=== PATIENT | female | born 1955 | race Caucasian/White ===

== ENCOUNTER 2017-09-21 08:40 | Inpatient (IN) | payer BC ==
[2017-08-26 11:54] VITALS: Ht 172.7 cm; Wt 57.7 kg
--- NOTE | 2017-08-26 12:38 | PAT Medication Instructions ---
Service Date Aug 26, 2017. Current Home Medication List Bupropion (Wellbutrin), 75 MG PO QAM Citalopram Hydrobromide (Celexa), 20 MG PO BID Cyclobenzaprine Hcl (Flexeril), 10 MG PO TID Hydrocodon/Acetaminophen 7.5MG/300MG (Vicodin Es (7.5MG/300MG)), 1 TAB PO Q6 PRN for Pain Lidocaine (Lidocaine), 1 DOSE TOP Q12 Lorazepam (Ativan), 0.5 MG PO TID Losartan Potassium (Cozaar), 50 MG PO QAM Naproxen (Naprosyn), 500 MG PO BID Naproxen (Naprosyn), 0.5 TAB PO 3 AM Temazepam (Restoril), 15 MG PO 11 AM Medication Instructions For Your Scheduled Surgery -Continue as directed: Temazepam (Restoril), 15 MG PO 11 AM - Hold the following medications 1 week prior to surgery: Naproxen (Naprosyn), 500 MG PO BID Naproxen (Naprosyn), 0.5 TAB PO 3 AM - Hold the following medications 24 hours prior to surgery: Lidocaine (Lidocaine), 1 DOSE TOP Q12 - Hold the following medications the morning of surgery: Cyclobenzaprine Hcl (Flexeril), 10 MG PO TID Losartan Potassium (Cozaar), 50 MG PO QAM - Take the following medications the morning of surgery with a sip of water: Hydrocodon/Acetaminophen 7.5MG/300MG (Vicodin Es (7.5MG/300MG)), 1 TAB PO Q6 PRN for Pain (if needed, up to four hours before surgery) Bupropion (Wellbutrin), 75 MG PO QAM Lorazepam (Ativan), 0.5 MG PO TID Citalopram Hydrobromide (Celexa), 20 MG PO BID - Take the following medications as scheduled the night before surgery: Hydrocodon/Acetaminophen 7.5MG/300MG (Vicodin Es (7.5MG/300MG)), 1 TAB PO Q6 PRN for Pain Lorazepam (Ativan), 0.5 MG PO TID Cyclobenzaprine Hcl (Flexeril), 10 MG PO TID Citalopram Hydrobromide (Celexa), 20 MG PO BID If you have any questions please call us at [phone] or [phone] or [phone]
--- NOTE | 2017-08-26 13:16 | DIAGNOSTIC IMAGING REPORT ---
CHEST 2 VIEWS ROUTINE CLINICAL HISTORY: Preoperative chest COMPARISON STUDY: No previous studies for comparison. FINDINGS: The cardiac and mediastinal contours are normal. There is no evidence of focal pulmonary consolidation. There is no evidence of failure. No pleural effusions are visualized.[ IMPRESSION: No active disease in the chest. Electronically signed by: Sincere Cueto M.D. 08/26/2017 1:15 PM Dictated Date/Time: 08/26/2017 1:14 PM
[2017-08-26 13:40] LABS: BASO % 0.4 %; BASO ABS # 0.05 K/uL (0-0.2); EOS % 1.3 %; EOS ABS # 0.16 K/uL (0-0.5); HEMATOCRIT 39.9 % (37-47); HEMOGLOBIN 13.3 g/dL (12.0-16.0); IG# 0.02 K/uL (0.00-0.02); LYMPH % 36.3 %; LYMPH ABS # 4.32 K/uL (1.2-3.4); MEAN CELL VOLUME 93.2 fL (80-100); MEAN CORPUSCULAR HEMOGLOBIN 31.1 pg (25-34); MEAN CORPUSCULAR HGB CONC 33.3 g/dl (32-36); MEAN PLATELET VOLUME 9.1 fL (7.4-10.4); MONO % 7.7 %; MONO ABS # 0.92 K/uL (0.11-0.59); NEUT % 54.1 %; NEUT ABS # 6.43 K/uL (1.4-6.5); PLATELET COUNT 321 K/uL (130-400); RED CELL DISTRIBUTION WIDTH CV 13.2 % (11.5-14.5); RED CELL DISTRIBUTION WIDTH SD 44.8 fL (36.4-46.3)
[2017-08-26 13:41] LABS: CALCIUM 9.4 mg/dl (8.5-10.1); CREATININE 0.9 mg/dl (0.60-1.20); POTASSIUM 3.7 mmol/L (3.5-5.1)
[2017-09-21] VITALS (7 sets, daily range): BP systolic 101–131; BP diastolic 57–73; PULSE 99–105; TEMP 36.4–37.1; O2SAT 92–100
[~2017-09-21] VITALS: Ht 172.7 cm; Wt 57.7 kg
[~2017-09-21 08:40] MED LIST: BUPR75TA20 PO; CEFAZOLIN 1000MG IV PUSH 5 ML IV SCH; CITA20TA9 PO; CYCL10TA6 PO; HYDR-3714 PO; LACTATED RINGER'S 1000ML 1,000 ML IV SCH; LDDP5 TOP; LORA-741 PO; LOSA50TA6 PO; NAPR-1169 PO; TEMA15CA4 PO
[2017-09-21] MEDS ORDERED: FENTANYL CITRATE INJ 50 MCG/1 ML 2 ML VIAL ONE ×6 (10:01→13:35)
[2017-09-21] MEDS ORDERED: MIDAZOLAM HCL 1 MG/ML 2ML VIAL ONE ×2 (10:01→14:07)
--- NOTE | 2017-09-21 10:18 | History & Physical Bridge Note ---
H&P Re-Evaluation Bridge Note: I have examined the patient, reviewed the History & Physical and in the interval since the performance of the History & Physical I have noted the following changes of clinical significance: No changes noted
--- NOTE | 2017-09-21 10:19 | History and Physical ---
History & Physical Date Sep 21, 2017. Chief Complaint Back and leg pain History of Present Illness The patient is a 62 year old female with complaints of back and leg pain Additional History Hepatic Disease: No Endocrine Disorder: No Kidney Disease: No Hypertension: Yes Heart Disease: No Bleeding Tendencies: No Infectious Diseases: No Allergies Coded Allergies: Sulfa Antibiotics (Verified Allergy, Severe, THROAT SWELLING, 09/21/17) Home Medications Scheduled Bupropion (Wellbutrin), 75 MG PO QAM Citalopram Hydrobromide (Celexa), 20 MG PO BID Cyclobenzaprine Hcl (Flexeril), 10 MG PO TID Lidocaine (Lidocaine), 1 DOSE TOP Q12 Lorazepam (Ativan), 0.5 MG PO TID Losartan Potassium (Cozaar), 50 MG PO QAM Naproxen (Naprosyn), 500 MG PO BID Naproxen (Naprosyn), 0.5 TAB PO 3 AM Temazepam (Restoril), 15 MG PO 11 AM Scheduled PRN Hydrocodon/Acetaminophen 7.5MG/300MG (Vicodin Es (7.5MG/300MG)), 1 TAB PO Q6 PRN for Pain Physical Examination Skin: warm/dry, no rash Eyes: normal inspection, EOMI, sclerae normal ENT: normal ENT inspection, pharynx normal Head: normocephalic, atraumatic Neck: supple, no adenopathy, trachea midline Respiratory/Chest: lungs clear, normal breath sounds, no respiratory distress Cardiovascular: regular rate, rhythm, no edema, no murmur Abdomen / GI: normal bowel sounds, non tender Back: normal inspection Extremities: normal inspection, normal range of motion Neurologic/Psych: no motor/sensory deficits, alert, normal reflexes, oriented x 3 Diagnosis Lumbar spinal stenosis Plan of Treatment L2 to L5 decompression fusion with possible L2 to S1 fusion
[2017-09-21] MEDS ORDERED: BACITRACIN 50000 UNIT VIAL ONE (10:35)
[2017-09-21] MEDS ORDERED: BUPIVACAINE 0.5 % 5 MG/1 ML MPF 30ML VIAL ONE (10:36)
[2017-09-21] MEDS ORDERED: EpINEphrine INJ 1MG/ML AMP 1 MG/ML AMP ONE (10:36)
[2017-09-21] MEDS ORDERED: HYDROmorphone INJ 2 MG/ML SYR/VIAL ONE ×3 (11:26→13:02)
[2017-09-21] MEDS ORDERED: MoRPHine SULFATE 10 MG/ML CARP/VIAL IV PRN (12:15)
[2017-09-21] MEDS ORDERED: ONDANSETRON INJ 2 MG/ML 2 ML VIAL IV PRN ×2 (12:15→13:15)
[2017-09-21] MEDS ORDERED: ATROPINE SULFATE 0.1 MG/ML 5ML SYR IV PRN (12:15)
[2017-09-21] MEDS ORDERED: FENTANYL CITRATE INJ 50 MCG/1 ML 2 ML VIAL IV PRN (12:15)
[2017-09-21] MEDS ORDERED: EpHEDrine SULFATE INJ 50 MG/ML AMP IV PRN (12:15)
[2017-09-21] MEDS ORDERED: ONDANSETRON INJ 2 MG/ML 2 ML VIAL ONE (12:29)
[2017-09-21] MEDS ORDERED: DEXAMETHASONE SOD INJ 4 MG/ML VIAL ONE (12:29)
[2017-09-21] MEDS ORDERED: LIDOCAINE HCL 2% 2 ML VIAL (20MG/ML) ONE (12:29)
[2017-09-21] MEDS ORDERED: PROPOFOL IV EMULSION 10 MG/ML 20 ML VIAL IV ONE (12:29)
[2017-09-21] MEDS ORDERED: ROCURONIUM BROMIDE 10 MG/ML 5 ML VIAL IV ONE (12:29)
[2017-09-21] MEDS ORDERED: FLOSEAL HEMOSTATIC MATRIX 10ML TOP ONE (12:42)
[2017-09-21] MEDS ORDERED: SODIUM CHLORIDE 0.9% 1000ML 1,000 ML IV SCH (13:04)
[2017-09-21] MEDS ORDERED: PHENYLEPHRINE 100MCG/ML 5ML SYR ONE (13:09)
[2017-09-21] MEDS ORDERED: GLYCOPYRROLATE INJ 0.2 MG/ML VIAL ONE (13:09)
[2017-09-21] MEDS ORDERED: NEOSTIGMINE METHYLSULFATE 1 MG/ML 10ML VIAL ONE (13:09)
[2017-09-21] MEDS ORDERED: EpHEDrine SULFATE 50MG/5ML SYR ONE (13:09)
--- NOTE | 2017-09-21 13:14 | [facility] Operative Report ---
Operative Report Operative Date Sep 21, 2017. Pre-Operative Diagnosis Lumbar Spinal Stenosis Post-Operative Diagnosis same as preop Procedure(s) Performed Her 1 lumbar decompression medial facetectomy foraminotomies L2 3 L3 4 L4 5. #2 posterior spinal fusion L2 3 L3 4 L4 5. #3 placement posterior segmental instrumentation L2 3 L3 4 L4 5. #4 placement locally harvested morcellized autograft posterior gutters. #5 placement infuse collagen sponge by mask graft in the posterior lateral gutters L2 to L5. Surgeon Dr. Augustine Banerjee Trouble Lineman Surgeon(s) N/A Estimated Blood Loss 175mL Findings Severe spinal stenosis Specimens none, per surgeon Description of Procedure Patient was met with preoperatively case discussed all questions addressed. After informed consent obtained patient was taken to the operative suite underwent intubation placed in a prone position the Iker table top Thony frame. All bony prominences well-padded eyes inspected to ensure no external pressure placed upon them. This point the lumbar spines prepped and draped nostril fashion. Sharp dissection with the assistance of Bovie cautery was performed onto an exposing the lamina and transverse processes of L2-L3 L4-L5 bilaterally. From a caudal to cephalad fashion complete laminectomy including a facetectomy foraminotomy of L4 L3 and L2 was performed addressing severe spinal stenosis. After this complete pedicle screws are placed in L2-L3 L4-L5 bilaterally with assistance of fluoroscopy in the purposes ralph locked in position. Cross-link was locked in position. Transverse processes of L2-L3 L4- L5 burred to subcortical bleeding bone. Infuse collagen sponge mask graft locally harvested morcellized autograft placed in the posterior gutters. 15 round JERSON drain inserted. Incision then closed with 1 Vicryl fascia 2-0 Vicryl subcutaneous tediously 4 Monocryl for final skin closure Steri-Strip sterile dressing was placed. Patient we can taken to PACU stable condition. I attest to the content of the Intraoperative Record and any orders documented therein. Any exceptions are noted below.
[2017-09-21] MEDS ORDERED: ALUMINUM/MAGNESIUM SUSP 30 ML UDC PO PRN (13:15)
[2017-09-21] MEDS ORDERED: hydrOXYzine HCL 25 MG TAB PO PRN (13:15)
[2017-09-21] MEDS ORDERED: DO NOT ADMINISTER FLU VACCINE PRN (13:15)
[2017-09-21] MEDS ORDERED: METOCLOPRAMIDE HCL INJ 5 MG/ML 2 ML VIAL IV PRN (13:15)
[2017-09-21] MEDS ORDERED: BISACODYL 10 MG SUPP PR PRN (13:15)
[2017-09-21] MEDS ORDERED: LORAZEPAM 0.5 MG TAB PO PRN (13:15)
[2017-09-21] MEDS ORDERED: NALOXONE HCL 0.4 MG/1 ML VIAL/CARP IV PRN ×2 (13:15)
[2017-09-21] MEDS ORDERED: PROMETHAZINE HCL INJ 12.5 MG in SODIUM CHLORIDE 0.9% 50ML 50 ML IV PRN (13:15)
[2017-09-21] MEDS ORDERED: ACETAMINOPHEN IV 100 ML IV PRN (13:15)
[2017-09-21] MEDS ORDERED: HYDROmorphone HCL 0.5MG/ML 50 ML CASSETTE IV PRN (13:15)
[2017-09-21] MEDS ORDERED: DO NOT ADMINISTER PNEUMOCOCCAL VACCINE PRN (13:15)
[2017-09-21] MEDS ORDERED: SOD PHOSPHATE/SOD BIPHOSPHATE ENEMA 132 ML BTL PR PRN (13:15)
[2017-09-21] MEDS ORDERED: MAGNESIUM HYDROXIDE SUSP 30 ML UDC PO PRN (13:15)
[2017-09-21] MEDS ORDERED: FAMOTIDINE 20 MG TAB PO PRN (13:15)
[2017-09-21] MEDS ORDERED: LORAZEPAM INJ 0.5 MG in SYRINGE 0 ML IV PRN (13:15)
--- NOTE | 2017-09-21 13:30 | DIAGNOSTIC IMAGING REPORT ---
LUMBAR SPINE 2 OR 3 VIEW CLINICAL HISTORY: 62 years-old Female presenting with L2-L5 DECOMP/FUSION POSS L2-S1. TECHNIQUE: 3 fluoroscopic spot image(s) obtained as part of an intraoperative procedure. COMPARISON: None. FINDINGS/IMPRESSION: Bilateral transpedicular screw and ralph fixation of L2-L5. Bunionectomy defects also noted at several of these levels. Grossly normal anatomic alignment. Please see surgical report for further details. Fluoroscopy dosage (mGy): 9.4. Fluoroscopy time: 20.6 seconds. Number of fluoroscopic spot images: 3. Electronically signed by: Mack Miranda M.D. 09/21/2017 1:29 PM Dictated Date/Time: 09/21/2017 1:28 PM
[2017-09-21] MEDS ORDERED: MoRPHine SULFATE 10 MG/ML CARP/VIAL ONE (13:43)
[2017-09-21] MEDS ORDERED: HYDROmorphone HCL 0.5MG/ML 50 ML CASSETTE ONE (13:47)
[2017-09-21] MEDS ORDERED: LORAZEPAM 0.5 MG TAB PO SCH (14:00)
[2017-09-21] MEDS ORDERED: NURSING VERBAL MED ORDER ONE ×2 (14:15→14:45)
--- NOTE | 2017-09-21 14:29 | Anesthesiology Progress Note ---
Anesthesia Post Op Note Date & Time Sep 21, 2017 at 14:29 Vital Signs Pain Intensity: 8 Vital Signs Past 12 Hours Date Time Temp Pulse Resp B/P (MAP) Pulse Ox O2 Delivery O2 Flow Rate FiO2 09/21/17 14:20 36.6 103 16 105/58 99 Nasal Cannula 3 09/21/17 14:10 111 16 121/63 99 Nasal Cannula 3 09/21/17 14:00 106 16 131/71 98 Nasal Cannula 3 09/21/17 13:50 105 16 134/69 98 Nasal Cannula 3 09/21/17 13:40 103 14 133/57 100 Nasal Cannula 3 09/21/17 13:30 101 14 131/64 100 Oxymask 3 09/21/17 13:20 97 14 125/65 100 Oxymask 5 09/21/17 13:12 36.5 91 14 111/69 100 Oxymask 5 09/21/17 09:31 37.1 105 18 131/71 96 Room Air Notes Mental Status: alert / awake / arousable, participated in evaluation Pt Amnestic to Procedure: Yes Nausea / Vomiting: adequately controlled Pain: adequately controlled Airway Patency, RR, SpO2: stable & adequate BP & HR: stable & adequate Hydration State: stable & adequate Anesthetic Complications: no major complications apparent
[2017-09-21] MEDS ORDERED: MIDAZOLAM HCL 1 MG/ML 2ML VIAL IV ONE (15:15)
[2017-09-21] MEDS: LIDODERM (LIDOCAINE) PATCH 5% TD SCH (16:51)
[2017-09-21] MEDS: CEFAZOLIN IV 1,000 MG in SYRINGE 0 ML IV SCH (17:43)
[2017-09-21] MEDS: DEXAMETHASONE INJ 6 MG in SYRINGE 0 ML IV SCH (20:30)
[2017-09-21] MEDS: LACTATED RINGER'S 1000ML 1,000 ML IV SCH ×2 (20:30→21:24)
[2017-09-21] MEDS: DOCUSATE SODIUM/SENNA 50/8.6MG TAB PO SCH (20:31)
[2017-09-21] MEDS: CITALOPRAM 20 MG TAB PO SCH (20:31)
[2017-09-21] MEDS ORDERED: TEMAZEPAM 15 MG CAP PO SCH (21:00)
[2017-09-22] MEDS: CEFAZOLIN IV 1,000 MG in SYRINGE 0 ML IV SCH (02:12)
[2017-09-22 03:11] VITALS: BP 120/69; PULSE 113; TEMP 36.8; O2SAT 92
[2017-09-22] MEDS: LACTATED RINGER'S 1000ML 1,000 ML IV SCH (03:28)
[2017-09-22] MEDS: DEXAMETHASONE INJ 6 MG in SYRINGE 0 ML IV SCH ×2 (04:19→12:09)
[2017-09-22] MEDS ORDERED: DC PCA ONE (06:00)
[2017-09-22] MEDS ORDERED: NURSING DECISION MEDICATION ORDER SCH (06:30)
[2017-09-22 06:32] LABS: BASO % 0.1 %; BASO ABS # 0.01 K/uL (0-0.2); HEMATOCRIT 31.3 % (37-47); IG# 0.05 K/uL (0.00-0.02); LYMPH % 6.8 %; LYMPH ABS # 1.06 K/uL (1.2-3.4); MEAN CELL VOLUME 94.6 fL (80-100); MEAN CORPUSCULAR HEMOGLOBIN 30.2 pg (25-34); MEAN CORPUSCULAR HGB CONC 31.9 g/dl (32-36); MEAN PLATELET VOLUME 9.1 fL (7.4-10.4); MONO % 5.1 %; NEUT % 87.7 %; NEUT ABS # 13.66 K/uL (1.4-6.5); PLATELET COUNT 271 K/uL (130-400); RED CELL DISTRIBUTION WIDTH CV 12.6 % (11.5-14.5); RED CELL DISTRIBUTION WIDTH SD 43.5 fL (36.4-46.3); WHITE BLOOD COUNT 15.58 K/uL (4.8-10.8)
[2017-09-22] MEDS: OXYCODONE HCL IR 5 MG TAB (IMMEDIATE RELEASE) PO PRN ×4 (07:02→21:12)
[2017-09-22 07:05] LABS: CALCIUM 8.5 mg/dl (8.5-10.1); CREATININE 0.78 mg/dl (0.60-1.20); POTASSIUM 4.5 mmol/L (3.5-5.1)
[2017-09-22 07:50] VITALS: BP 120/68; PULSE 89; TEMP 36.6; O2SAT 92
[2017-09-22 08:02] VITALS: O2SAT 92
--- NOTE | 2017-09-22 08:02 | Clinical Documentation Query ---
SIMON Garcia : CLINICAL DOCUMENTATION QUERIES QUERY 1 OF 2 Patient is a 62 year old female who underwent posterior lumbar decompression and fusion . Preoperative H&H was 13.3 g/dl and 39.9%. POD #1, repeat values are 10.0 g/dl and 31.3%. EBL for the procedure was 175 ml's with subsequently documented losses of an additional 240 ml's to date. Additionally, net I/O is positive for > 1 liter at this time. She is being monitored with serial hematology and I/O including drain outputs. Please clarify and document as clinically appropriate. Thank you. In your clinical opinion is this patient being managed for: ( ) Acute blood loss anemia ( ) Not Agree ( ) Other explanation of clinical findings (Please Explain) ( ) Unable to determine (Please Define) ( ) Need to Discuss The medical record reflects the following clinical findings, treatment, and risk factors. Clinical Indicators: As above Treatment:She is being monitored with serial hematology and I/O including drain outputs Risk Factors: IVF administration, acute perioperative blood losses QUERY 2 OF 2 BMI noted to be 19.3 kg/m*m. In order to capture this clinically relevant data from the medical record, the provider must explicitly document an associated condition. As appropriate, consider documentation as suggested below. Thank you. In your clinical opinion is this patient: ( ) Underweight, Body mass index (BMI) 19.3 ( ) Not Agree ( ) Other explanation of clinical findings (Please Explain) ( ) Unable to determine (Please Define) ( ) Need to Discuss The medical record reflects the following clinical findings, treatment, and risk factors. Please clarify and document your clinical opinion in the progress notes and discharge summary. Terms such as "probable", "suspected", "likely", "questionable", "possible", or "still to be ruled out" are acceptable. IF IN AGREEMENT, YOU MUST DOCUMENT ABOVE DIAGNOSTIC STATEMENT IN DAILY PROGRESS NOTES AND DISCHARGE SUMMARY. This document is not part of the patient's record. Thank You, Jaron Monroe, JUANJOSE [phone]
[2017-09-22] MEDS: CITALOPRAM 20 MG TAB PO SCH ×2 (08:56→21:11)
[2017-09-22] MEDS: LOSARTAN POTASSIUM 50 MG TAB PO SCH (08:57)
[2017-09-22] MEDS: LIDODERM (LIDOCAINE) PATCH 5% TD SCH (08:58)
[2017-09-22 12:37] VITALS: BP 116/70; PULSE 97; TEMP 36.9; O2SAT 95
[2017-09-22] MEDS ORDERED: NURSING VERBAL MED ORDER ONE (14:00)
[2017-09-22] MEDS: HYDROmorphone INJ 0.5 MG/0.5 ML SYR IV PRN ×2 (14:05→19:11)
--- NOTE | 2017-09-22 14:15 | Progress Note ---
Progress Note Date of Service Sep 22, 2017. Progress Note Patient is postop day #1. Back pain is controlled. Leg symptoms improved. Vital signs are stable. JERSON drain decreasing appropriate. On exam she is good strength testing appears comfortable. Assessment status post lumbar depression fusion replant this time we'll initiate physical therapy advance her bowel regimen anticipate home Wednesday.
[2017-09-22] MEDS: NICOTINE 21 MG/24 HR TDSY EXT SCH (14:19)
[2017-09-22] MEDS ORDERED: RXC5 PO (14:20)
--- NOTE | 2017-09-22 14:21 | Discharge Instructions ---
Discharge Instructions Date of Service Sep 22, 2017. Admission Reason for Admission: Lumbar Spinal Stenosis Discharge Discharge Diagnosis / Problem: lumbar stenosis Discharge Goals Goal(s): Improve function Activity Recommendations Activity Limitations: per Instructions/Follow-up section . Instructions / Follow-Up Instructions / Follow-Up ACTIVITY RECOMMENDATIONS: SELF CARE INSTRUCTIONS AFTER THORACIC/LUMBAR FUSIONS 1. You may walk to your tolerance. It is good exercise for your legs and back. Expect some back and intermittent leg aches and pains. 2. You may perform "counter-top" level activities (make a sandwich, felicia with a project, etc.). 3. No bending or lifting of more than 10 pounds or back twisting of any nature (roll like a log when turning in bed). 4. You may ride in a car for 20-30 minutes at a time. No driving until after your first visit with your doctor. 5. Frequent changes of position and restricting sitting to 30 minutes at a time will help limit the amount of back spasms and stiffness you may experience. 6. You may discontinue the use of ambulatory aids (cane, crutches, etc.) once your strength and confidence allow. 7. You may cane flume feeding machine operator the shower and let water strike your incision when you arrive home at least once daily. Do not take a tub bath, sit in a hot tub or go into a swimming pool until after your first recheck in the office. SPECIAL CARE INSTRUCTIONS: VERY IMPORTANT TO READ AND REVIEW A. Your surgical incision has been closed with a cosmetic suture under the skin that will dissolve in about 6 weeks. In 14 days, you can use a pair of clean scissors and cut the suture that is left outside of the skin at the ends of your incision. 1. The small skin tapes can be removed 7 days after surgery if they have not fallen off by that point. 2. You may keep the wound open to air as much as possible to promote healing after post-op day number 5 unless told otherwise by your doctor. 3. If you think the wound looks like it is becoming infected (redness or worsening drainage) and/or you are experiencing fever, chill or worsening back pain and muscle spasms, contact the office so that we may evaluate you as soon as possible. B. Complications are uncommon, but please contact us if you have any signs or symptoms of: 1. wound infection (fever higher than 102.5 degrees F, redness, separation of wound, drainage, or increasing pain from the incision) 2. blood clots in legs (pain, swelling, redness and warmth in legs) 3. urinary tract infection (fever higher than 102.5 degrees F, burning upon urination or increased frequency of urination) 4. nerve problems (inability to walk on your toes or heels, numbness, loss of bowel or bladder control) 5. any other symptoms that concern you C. Please call the office at if you have any concerns or questions about your operation or recovery. D. No smoking! Smoking drastically decreases the chance of a solid fusion. E. Do not take any anti-inflammatory medications (Indocin, Advil, Motrin, Aspirin, Naprosyn, etc.) as these may inhibit the chance of a solid fusion. Tylenol is okay to take for pain. MANAGING PAIN AFTER SPINAL SURGERY 1. Narcotic medication is intended for short-term use and will be provided for surgical pain. Surgical pain usually lasts for a period of 4-6 weeks. Narcotic medication includes Percocet, Vicodin, Darvocet, Tylenol #3 or Lortab. 2. Longer-term pain is more appropriately treated with non-narcotic medication such as Tylenol ES. 3. Muscle spasm is not appropriately treated with narcotics. Muscle relaxers such as Soma, Flexeril or Skelaxin can be used along with Tylenol ES. 4. Remember that we all live with some "aches and pains". This is not unusual or uncommon after an injury or as we get older. a. Back pain is expected and may include muscle spasms for 4 to 6 weeks after surgery. The pain should gradually improve. If the pain worsens for no apparent reason, please contact the office. b. Intermittent leg pain may also be experienced and should not be concerned about unless it worsens for no apparent reason. If so, please contact the office. 5. We will provide appropriate medication within the normal guidelines of their prescribed use. We will also be very cautious and aware of potential abuse and extended duration of patients' medication needs. a. Pain medications are for your comfort and to assist with sleep and rest so that the tissue can heal. They are not provided in order to return to normal activity and should not be used through the day. To do so or worsening pain at night can result from ongoing tissue damage and development of tolerance to the prescribed medicine. 6. Please allow 2-3 days to process refills. Prescriptions will not be mailed but must be picked up at the office. FOLLOW UP VISIT: Keep your scheduled follow-up appointment. Any questions, please call the office at . Current Hospital Diet Patient's current hospital diet: Regular Diet Discharge Diet Recommended Diet: Regular Diet Procedures Procedures Performed: Her 1 lumbar decompression medial facetectomy foraminotomies L2 3 L3 4 L4 5. #2 posterior spinal fusion L2 3 L3 4 L4 5. #3 placement posterior segmental instrumentation L2 3 L3 4 L4 5. #4 placement locally harvested morcellized autograft posterior gutters. #5 placement infuse collagen sponge by mask graft in the posterior lateral gutters L2 to L5. Pending Studies Studies pending at discharge: no Medical Emergencies . Who to Call and When: Medical Emergencies: If at any time you feel your situation is an emergency, please call 911 immediately. . Non-Emergent Contact Non-Emergency issues call your: Primary Care Provider . "Provider Documentation" section prepared by Augustine Banerjee. . VTE Core Measure Inpt VTE Proph given/why not?: Cory Elizondo, SCD's
[2017-09-22 15:07] VITALS: BP 115/58; PULSE 99; TEMP 36.8; O2SAT 95
[2017-09-22] MEDS: ACETAMINOPHEN 500 MG TAB PO PRN (19:11)
[2017-09-22] MEDS: DOCUSATE SODIUM/SENNA 50/8.6MG TAB PO SCH (21:11)
[2017-09-22 23:30] VITALS: BP 126/66; PULSE 97; TEMP 36.8; O2SAT 96
[2017-09-23] MEDS: OXYCODONE HCL IR 5 MG TAB (IMMEDIATE RELEASE) PO PRN ×6 (01:50→23:38)
[2017-09-23] MEDS: HYDROmorphone INJ 0.5 MG/0.5 ML SYR IV PRN ×4 (04:40→20:53)
[2017-09-23] MEDS: POLYETHYLENE (MIRALAX) 17 GM PACK PO SCH ×3 (05:06→17:38)
[2017-09-23 07:25] VITALS: BP 149/78; PULSE 97; TEMP 36.6; O2SAT 100
[2017-09-23] MEDS ORDERED: KETOROLAC TROMETHAMINE 30 MG/ML VIAL IV STA (08:16)
--- NOTE | 2017-09-23 08:30 | Progress Note ---
Progress Note Date of Service Sep 23, 2017. Progress Note Patient is doing well struggling with some back soreness only. Leg pain improved. On exam she is ambulating bathroom with a narrow steady gait. Good strength testing. Assessment status post multilevel lumbar decompression fusion. Planned this time will maintain the JERSON drain today. Plan for DC prior to bedtime this evening. Plan for DC home tomorrow.
[2017-09-23] MEDS: NICOTINE 21 MG/24 HR TDSY EXT SCH (08:41)
[2017-09-23] MEDS: LIDODERM (LIDOCAINE) PATCH 5% TD SCH (08:42)
[2017-09-23] MEDS: LOSARTAN POTASSIUM 50 MG TAB PO SCH (08:42)
[2017-09-23] MEDS: CITALOPRAM 20 MG TAB PO SCH ×2 (08:42→20:48)
[2017-09-23] MEDS ORDERED: LIDODERM (LIDOCAINE) PATCH 5% TD SCH (09:00)
[2017-09-23] MEDS ORDERED: KETOROLAC TROMETHAMINE 30 MG/ML VIAL IV PRN (12:00)
[2017-09-23 15:00] VITALS: BP 119/61; PULSE 94; TEMP 36.8; O2SAT 96
[2017-09-23] MEDS ORDERED: NURSING VERBAL MED ORDER ONE (17:45)
[2017-09-23] MEDS: DOCUSATE SODIUM/SENNA 50/8.6MG TAB PO SCH (20:48)
[2017-09-23 23:05] VITALS: BP 138/82; PULSE 102; TEMP 37.1; O2SAT 96
[2017-09-24] MEDS: HYDROmorphone INJ 0.5 MG/0.5 ML SYR IV PRN ×2 (01:12→07:37)
[2017-09-24] MEDS: OXYCODONE HCL IR 5 MG TAB (IMMEDIATE RELEASE) PO PRN ×2 (04:25→08:51)
[2017-09-24] MEDS: ACETAMINOPHEN 500 MG TAB PO PRN (05:46)
[2017-09-24 07:56] VITALS: BP 100/80; PULSE 75; TEMP 37; O2SAT 98
[2017-09-24 08:18] VITALS: O2SAT 98
[2017-09-24] MEDS: NICOTINE 21 MG/24 HR TDSY EXT SCH (08:50)
[2017-09-24] MEDS: CITALOPRAM 20 MG TAB PO SCH (08:50)
[2017-09-24] MEDS: LIDODERM (LIDOCAINE) PATCH 5% TD SCH (08:50)
[2017-09-24] MEDS: LOSARTAN POTASSIUM 50 MG TAB PO SCH (08:50)
[2017-09-24 10:46] VITALS: BP 100/80; PULSE 75; TEMP 37; O2SAT 98
--- NOTE | 2017-09-24 12:30 | Discharge Summary ---
Orthopedic Discharge Summary Admission Date/Reason Sep 21, 2017 at 08:55 Lumbar Spinal Stenosis. Discharge Date/Disposition Sep 24, 2017 Home Diagnosis Principal Diagnosis: Lumbar spinal stenosis Admission Physical Exam As per Admitting History & Physical. Hospital Course Patient underwent lumbar decompression fusion tolerated this well as taken to the orthopedic floor postoperatively. Postoperatively she progressed normal fashion. JERSON drain decreased appropriately. Subsequently discharged home. Discharge orders and instructions found on the chart for further review. Discharge Instructions Please refer to the electronic Patient Visit Report (Discharge Instructions) for additional information.
== END 2017-09-24 12:56 | disposition home or self-care (01) | DRG 460 ==
LOC: C.ACU 08:40 → C.3E 08:55 → ENRESERV 13:35
PROVIDERS: ADMIT Orthopaedic Surgery Orthopaedic Surgery of the Spine; ATTEND Orthopaedic Surgery Orthopaedic Surgery of the Spine
PROC: 0SG1071 Fusion of 2 or more Lumbar Vertebral Joints with Autologous Tissue Substitute, Posterior Approach, Posterior Column, Open Approach (ICD-10-PCS; principal; 2017-09-21 11:15)
DX: M48.061 Spinal stenosis, lumbar region without neurogenic claudication (principal); I10 Essential (primary) hypertension; Z88.2 Allergy status to sulfonamides